=== PATIENT | male | born 1960 | race Caucasian/White ===

== ENCOUNTER 2017-08-31 07:28 | Inpatient (IN) ==
[2017-08-31] MEDS ORDERED: VANCOMYCIN 1,000 MG VIAL ONE (08:22)
[2017-08-31] MEDS ORDERED: MIDAZOLAM 2 MG/2 ML VIAL IV ONE (08:30)
[2017-08-31] MEDS ORDERED: VANCOMYCIN INJ 1,000 MG in SODIUM CHLORIDE 0.9% 250 ML IV ONE (08:30)
[2017-08-31] MEDS ORDERED: fentaNYL 100 MCG/2 ML VIAL IV ONE (08:30)
[2017-08-31] MEDS ORDERED: oxyCODONE/ACETAMINOPHEN 5-325 MG TABLET PO ONE (08:48)
[2017-08-31] MEDS ORDERED: oxyCODONE/ACETAMINOPHEN 5-325 MG TABLET ONE (08:54)
[2017-08-31] MEDS: SODIUM CHLORIDE 0.45% 1,000 ML IV SCH (08:57)
[2017-08-31] MEDS ORDERED: ONDANSETRON 4 MG/2 ML VIAL ONE ×2 (12:57→14:41)
[2017-08-31] MEDS ORDERED: fentaNYL 100 MCG/2 ML VIAL ONE (12:57)
[2017-08-31] MEDS ORDERED: MIDAZOLAM 2 MG/2 ML VIAL ONE ×2 (12:57→14:37)
[2017-08-31] MEDS ORDERED: cefTRIAXone 1,000 MG in SYRINGE 1 EACH IV ONE (13:54)
[2017-08-31] MEDS: ONDANSETRON 4 MG/2 ML VIAL IV PRN ×2 (14:03→14:40)
[2017-08-31] MEDS ORDERED: HYDROmorphone 2 MG/1 ML VIAL ONE (14:13)
[2017-08-31] MEDS ORDERED: HYDROmorphone 2 MG/1 ML VIAL IV PRN (14:20)
[2017-08-31] MEDS ORDERED: diphenhydrAMINE 50 MG/1 ML VIAL IV PRN (16:31)
[2017-08-31] MEDS ORDERED: NALOXONE 0.4 MG/ML VIAL IV PRN (16:31)
[2017-08-31] MEDS ORDERED: ONDANSETRON 4 MG/2 ML VIAL IV PRN (16:31)
[2017-08-31] MEDS ORDERED: HYDROmorphone 2 MG/1 ML VIAL IV ONE (16:46)
[2017-08-31] MEDS: HYDROmorphone PCA 30 MG/30 ML SYRINGE IV SCH (17:00)
[2017-08-31] MEDS: SODIUM CHLORIDE 0.9% 1,000 ML IV SCH (17:00)
[2017-08-31] MEDS ORDERED: LABETALOL 20 MG/4 ML SYRINGE IV PRN (17:22)
[2017-08-31 17:34] LABS: Basophils # 0.1 10*3/uL (0.0-0.2); Basophils % 0.5 % (0.0-0.8); Eosinophils # 0.1 10*3/uL (0.0-0.87); Eosinophils % 0.7 % (0.00-10.9); Hematocrit 52.7 VOL% (42.0-52.0); Hemoglobin 18.4 GM/DL (14.0-18.0); Immature Granulocytes % 0.9 %; Immature Granulocytes Absolute 0.13 #; Lymphocytes # 1.1 10*3/uL (1.4-4.0); Lymphocytes % 8.1 % (21.2-54.2); Mean Corpuscular HGB Conc 34.9 GM/DL (32-36); Mean Corpuscular Hemoglobin 31 PG (27-34); Mean Corpuscular Volume 87.8 FL (87-102); Mean Platelet Volume 9.3 FL (9.6-12.0); Monocytes # 0.6 10*3/uL (0.11-0.8); Monocytes % 4.5 % (1.7-12.7); Neutrophils # 11.7 10*3/uL (1.4-7.4); Neutrophils % 85.3 % (38.7-73.9); Platelet Count 254 T/CUMM (130-400); Red Cell Distribution Width 12.8 % (9.3-17.3); White Blood Count 13.7 T/CUMM (4-12)
[2017-08-31 17:54] LABS: Calcium 8.6 MG/DL (8.5-10.1); Osmolality,Calculated 276.7 MOS/KG (273-304)
[2017-08-31] MEDS: oxyCODONE/ACETAMINOPHEN 5-325 MG TABLET PO PRN (18:01)
[2017-08-31] MEDS: DOCUSATE SODIUM 100 MG CAPSULE PO SCH (23:26)
[2017-09-01] MEDS: SODIUM CHLORIDE 0.9% 1,000 ML IV SCH ×3 (00:51→14:42)
[2017-09-01] MEDS ORDERED: cefTRIAXone 1,000 MG in SYRINGE 1 EACH IV ONE (08:00)
[2017-09-01] MEDS: FAMOTIDINE 20 MG TABLET PO SCH (08:16)
[2017-09-01] MEDS: DOCUSATE SODIUM 100 MG CAPSULE PO SCH ×2 (08:16→21:13)
[2017-09-01] MEDS: SODIUM CHLORIDE 0.45% 1,000 ML IV SCH (08:16)
[2017-09-01] MEDS: TAMSULOSIN 0.4 MG CAPSULE PO SCH (08:16)
[2017-09-01] MEDS ORDERED: ACETAMINOPHEN 1,000 MG/100 ML VIAL IV ONE (09:06)
[2017-09-01] MEDS ORDERED: BUPIVACAINE 0.5% 50 ML VIAL ONE (10:08)
[2017-09-01] MEDS ORDERED: ALBUTEROL/IPRATROPIUM 3 ML NEB RESP TX ONE ×2 (12:50→12:54)
[2017-09-01] MEDS: HYDROmorphone 2 MG/1 ML VIAL IV PRN ×3 (13:05→13:20)
[2017-09-01] MEDS ORDERED: PROPOFOL 200 MG/20 ML VIAL IV ONE (13:08)
[2017-09-01] MEDS ORDERED: DESFLURANE 1 UNIT/15 MINUTE INH ONE (13:09)
[2017-09-01] MEDS ORDERED: PHENYLEPHRINE DRIP 20 MG/250 ML PREMIX IV ONE (13:09)
[2017-09-01] MEDS ORDERED: SEVOFLURANE 1 UNIT/15 MINUTE INH ONE (13:09)
[2017-09-01 13:10] LABS: Basophils % 0.4 % (0.0-0.8); Eosinophils # 0.3 10*3/uL (0.0-0.87); Eosinophils % 3.6 % (0.00-10.9); Hematocrit 46.3 VOL% (42.0-52.0); Hemoglobin 15.7 GM/DL (14.0-18.0); Immature Granulocytes % 1.5 %; Immature Granulocytes Absolute 0.14 #; Lymphocytes # 1.7 10*3/uL (1.4-4.0); Lymphocytes % 18.9 % (21.2-54.2); Mean Corpuscular HGB Conc 33.9 GM/DL (32-36); Mean Corpuscular Hemoglobin 30 PG (27-34); Mean Platelet Volume 9.2 FL (9.6-12.0); Monocytes # 0.7 10*3/uL (0.11-0.8); Monocytes % 7.3 % (1.7-12.7); Neutrophils # 6.2 10*3/uL (1.4-7.4); Neutrophils % 68.3 % (38.7-73.9); Platelet Count 224 T/CUMM (130-400); Red Cell Distribution Width 12.9 % (9.3-17.3); White Blood Count 9.1 T/CUMM (4-12)
[2017-09-01] MEDS ORDERED: SUFentanil 50 MCG/ML AMP ONE (13:10)
[2017-09-01] MEDS ORDERED: MIDAZOLAM 2 MG/2 ML VIAL ONE (13:10)
[2017-09-01] MEDS ORDERED: ONDANSETRON 4 MG/2 ML VIAL ONE (13:10)
[2017-09-01] MEDS ORDERED: GLYCOPYRROLATE 0.4 MG/2 ML VIAL ONE (13:10)
[2017-09-01] MEDS ORDERED: ONDANSETRON 4 MG/2 ML VIAL IV PRN (13:10)
[2017-09-01] MEDS ORDERED: ROCURONIUM 100 MG/10 ML VIAL IV ONE (13:11)
[2017-09-01] MEDS ORDERED: LACTATED RINGERS 1,000 ML IV ONE (13:11)
[2017-09-01] MEDS ORDERED: NEOSTIGMINE 10 MG/10 ML VIAL ONE (13:11)
[2017-09-01 13:50] LABS: Calcium 7.5 MG/DL (8.5-10.1); Osmolality,Calculated 275.7 MOS/KG (273-304); Potassium 5.2 MMOL/L (3.5-5.1)
[2017-09-01] MEDS: oxyCODONE/ACETAMINOPHEN 5-325 MG TABLET PO PRN ×2 (15:08→21:11)
[2017-09-02] MEDS: oxyCODONE/ACETAMINOPHEN 5-325 MG TABLET PO PRN (06:05)
[2017-09-02] MEDS: SODIUM CHLORIDE 0.9% 1,000 ML IV SCH ×2 (06:06→08:29)
[2017-09-02 06:42] LABS: Basophils # 0.1 10*3/uL (0.0-0.2); Basophils % 0.6 % (0.0-0.8); Eosinophils # 0.4 10*3/uL (0.0-0.87); Eosinophils % 4.7 % (0.00-10.9); Hematocrit 41.7 VOL% (42.0-52.0); Hemoglobin 14.1 GM/DL (14.0-18.0); Immature Granulocytes % 0.7 %; Immature Granulocytes Absolute 0.07 #; Lymphocytes # 1.8 10*3/uL (1.4-4.0); Lymphocytes % 18.7 % (21.2-54.2); Mean Corpuscular HGB Conc 33.8 GM/DL (32-36); Mean Corpuscular Hemoglobin 30 PG (27-34); Mean Corpuscular Volume 89.9 FL (87-102); Monocytes # 0.7 10*3/uL (0.11-0.8); Monocytes % 7.6 % (1.7-12.7); Neutrophils # 6.4 10*3/uL (1.4-7.4); Neutrophils % 67.7 % (38.7-73.9); Platelet Count 209 T/CUMM (130-400); Red Blood Count 4.64 MC/CUMM (3.8-5.5); Red Cell Distribution Width 13.1 % (9.3-17.3); White Blood Count 9.5 T/CUMM (4-12)
[2017-09-02 07:09] LABS: Calcium 7.6 MG/DL (8.5-10.1); Osmolality,Calculated 273.7 MOS/KG (273-304); Potassium 4.3 MMOL/L (3.5-5.1)
[2017-09-02] MEDS ORDERED: HYDROmorphone 2 MG/1 ML VIAL IV PRN (07:56)
[2017-09-02] MEDS ORDERED: ACETAMINOPHEN 325 MG TABLET PO SCH (08:00)
[2017-09-02] MEDS: HYDROmorphone PCA 30 MG/30 ML SYRINGE IV SCH (08:40)
[2017-09-02] MEDS: FAMOTIDINE 20 MG TABLET PO SCH (09:21)
[2017-09-02] MEDS: TAMSULOSIN 0.4 MG CAPSULE PO SCH (09:21)
[2017-09-02] MEDS: DOCUSATE SODIUM 100 MG CAPSULE PO SCH (09:21)
[2017-09-02 11:58] VITALS: BP 96/62
[2017-09-06 22:26] LABS: Stone Source Kidney
[2017-09-06 22:35] LABS: Stone Source Kidney
== END 2017-09-02 14:09 | disposition home or self-care (01) | DRG 660 ==
LOC: N.RAD 07:28 → N.SDSINP 07:37 → N.5E 16:28
PROVIDERS: ADMIT Radiology Diagnostic Radiology; ATTEND Surgery